=== PATIENT | female | born 1980 | race Two or more races ===

== ENCOUNTER 2021-07-16 01:25 | Emergency (ER) | payer OTHER ==
[~2021-07-16] VITALS: Ht 157.5 cm; Wt 64.4 kg
[2021-07-16] MEDS ORDERED: WELLBUTRIN XL150 M1 (01:44)
[2021-07-16] MEDS ORDERED: PROAIR RESPICL90 MCG IH (03:47)
[2021-07-16] MEDS ORDERED: ZITHROMAX500 MG PO (03:47)
[2021-07-16] MEDS ORDERED: TUSNEL LIQUID178 ML PO (03:47)
== END 2021-07-16 04:50 | disposition home or self-care (01) ==
LOC: ER 01:25 → EMR PED 01:25 → ER 02:01
DX: U07.1 COVID-19 (principal); R53.81 Other malaise